=== PATIENT | female | born 1965 | race African-American/Black ===

== ENCOUNTER 2016-11-19 15:33 | Inpatient (IN) | payer OTHER ==
--- NOTE | ~2016-11-19 | HP ---
Unit #: [id number] #: [id number] Patient: SONALI PATEL [id number] [place] [address] [id number] MR#: [id number] NAME: SONALI PATEL. ROOM: [facility] Age: 51 Sex: F Admission Date: 11/19/2016 : 1965 Attending Physician: Riley Anderson M.D. Admitting Physician: Riley Anderson M.D. Primary Care Physician: Primary Care Physician No HISTORY AND PHYSICAL HISTORY OF PRESENT ILLNESS The patient is a 51-year-old female admitted [facility] on 11/19/2016 for withdrawal from alcohol and drugs. PAST MEDICAL HISTORY 1. Diabetes. 2. Hypertension. 3. Nicotine dependence. 4. Alcohol abuse. 5. Drug abuse. PAST SURGICAL HISTORY 1. Back surgery. 2. Knee surgery. 3. Hysterectomy. SOCIAL HISTORY She is disabled. She lives with her friends. She smokes 2 packs of cigarettes daily. Drinks a fifth of alcohol per day, and uses cocaine on a daily basis. FAMILY MEDICAL HISTORY Noncontributory. ALLERGIES No known drug allergies. CURRENT MEDICATIONS Gabapentin, metformin, and lisinopril. REVIEW OF SYSTEMS CONSTITUTIONAL: No fever or chills. HEENT: Denies any sore throat, ear pain or runny nose. CARDIOVASCULAR: Denies chest pain, irregular heart rhythm or palpitations. CHEST: Denies shortness of breath or cough. No hemoptysis. GASTROINTESTINAL: Denies nausea, vomiting, diarrhea or chronic constipation. ENDOCRINE: Denies history of increased thirst or urination. No recent significant weight loss or gain. GENITOURINARY: Denies dysuria, frequency, or hematuria. SKIN: Denies any rashes. HEMATOLOGIC: Denies history of increased bleeding or bruising. MUSCULOSKELETAL: Denies any hot, swollen joints. No generalized muscle Unit #: [id number] #: [id number] Patient: SONALI PATEL pain. NEUROLOGIC: Denies problems with vision or speech. No frequent, severe headaches. No numbness, tingling or weakness in any extremities. Denies loss of bladder or bowel control. PHYSICAL EXAMINATION GENERAL: She is awake, alert, and oriented in no acute distress. VITAL SIGNS: Temperature 98.6, heart rate 98, respirations 18, blood pressure 173/95. HEIGHT: 5 feet 9. WEIGHT: 203 pounds. SKIN: Warm and dry without rash or lesion. HEENT: Normocephalic. TMs not viewed. Oral and nasal passages clear. Conjunctivae clear. PERRLA. EOMs intact. NECK: Supple without lymphadenopathy or thyromegaly. HEART: Regular rate and rhythm without murmur. LUNGS: Clear. ABDOMEN: Soft, nontender. : Not done. EXTREMITIES: No evidence of cyanosis, clubbing or edema. Moves all without focal deficit. NEUROLOGICAL: Grossly within normal limits. Cranial Nerves: II: Visual hernandez are intact. III, IV AND : Extraocular movements are intact. Pupils are equal, round and reactive to light. V: Facial sensation is grossly normal. VII: Facial movements and expression are normal. VIII: Auditory acuity grossly intact. IX, X: Uvula is midline. Phonation is normal. XI: Patient shrugs shoulders and turns head normally. XII: Tongue protrudes in the midline. Sensory and Motor Function: Sensory and motor sensation is grossly normal. Motor: moves all extremities well. IMPRESSION 1. Psychiatric admission. 2. Alcohol abuse. 3. Drug abuse. 4. Diabetes. 5. Hypertension. 6. Nicotine dependence. RECOMMENDATIONS PSYCHIATRIC: Per psychiatrist. MEDICAL: No contraindication to participate in this facility activities. MEDICAL PROGNOSIS Good. MEDICAL CONDITION Stable. Dictated by... Will Ramires/jorge l Unit #: [id number] #: [id number] Patient: SONALI PATEL TD: 11/20/2016 14:54 JOB #: [id number] HISTORY AND PHYSICAL Page 1 of 1 X ATTILA PACHECO APRN HISTORY AND PHYSICAL
--- NOTE | ~2016-11-19 | PN ---
Unit #: [id number] #: [id number] Patient: SONALI PATEL [id number] [facility] [address] [place] [address] [id number] MR#: [id number] NAME: SONALI PATEL. ROOM: P171 Age: 51 Sex: F Admission Date: 11/19/2016 : 1965 Attending Physician: Riley Anderson M.D. Admitting Physician: Riley Anderson M.D. Primary Care Physician: Primary Care Physician Rochelle PARRA PROGRESS NOTES DATE 11/22/2016 DISCUSSION The patient remains seclusive to room. She is complaining of some nighttime hunger and I will ask the hydroblaster to see her related to her history of diabetes. I will also ask the patient's social organization professor to see her regarding final arrangements for transfer to [facility] which should take place in the next couple of days. Dictated by... Riley Anderson M.D. CB/qing TD: 11/22/2016 23:35 JOB #: [id number] [facility] PROGRESS NOTES Page 1 of 1 X Riley Anderson MD X PROGRESS NOTE
--- NOTE | ~2016-11-19 | PA ---
Unit #: [id number] #: [id number] Patient: SONALI PATEL [id number] [place] [address] [id number] MR#: [id number] NAME: SONALI PATEL. ROOM: P171 Age: 51 Sex: F Admission Date: 11/19/2016 : 1965 Date of Assessment: 11/20/2016 Attending Physician: Riley Anderson M.D. Admitting Physician: Riley Anderson M.D. Primary Care Physician: Primary Care Physician No PSYCHIATRIC ASSESSMENT IDENTIFYING INFORMATION The patient is a 51-year-old female admitted with a history of alcohol and cocaine use. CHIEF COMPLAINT Drugs and alcohol. INFORMANT(S) Patient, reliability is fair. HISTORY OF PRESENT ILLNESS The patient is a 51-year-old female who was admitted to the [address] [place] [address] with a history of alcohol and cocaine use. The patient reports that she is scheduled to go to [facility] upon completion of detox. She has never been in chemical dependence treatment per her report. She denies recent changes in mood but does complain of chronic pain related to history of periodontal disease as well as back and foot pain. The patient reports no current suicidal or homicidal ideation. She denies any psychotic symptoms. She lives with her brother. She reports abuse of alcohol and cocaine. She denies any history of intravenous drug use. PAST PSYCHIATRIC HISTORY As above. PAST MEDICAL HISTORY Significant for history of diabetes mellitus, neuropathic diabetic pain, hypertension, and diabetes mellitus. ALLERGIES None. FAMILY HISTORY The patient's brother from a drug and alcohol related causes. SOCIAL HISTORY The patient lives with her brother. She is not presently employed. She reports alcohol and cocaine use as noted previously. She does not quantify her use of alcohol. MENTAL STATUS EXAMINATION Examination at this time reveals the patient to be a well-developed well-nourished female appearing stated age. She is in no Unit #: [id number] #: [id number] Patient: SONALI PATEL apparent physical distress at the time of examination. She awake, alert, and oriented in all spheres. Her mood is dysphoric, her affect blunted. Speech is generally well coherent. No gross deficits in memory or cognition noted. Intelligence is judged to be in the average range based on fund of knowledge. The patient is cooperative throughout the interview. She is currently reporting positive suicidal or homicidal ideation, and denies any psychotic symptoms. Her judgment and insight appear to be reasonably intact. ASSETS AND LIABILITIES The patient's assets: Motivation for change. Liabilities: Lack of resources. DIAGNOSTIC IMPRESSION 1. Alcohol use disorder. 2. Cocaine use disorder. 3. Diabetes mellitus. 4. Hypertension. TREATMENT PLAN The patient remains hospitalized for safety and stabilization. The patient will complete her detoxification protocol and states that she has already made arrangements to go to "[facility]" in [place], [place]. I would expect discharge to take place within 3 to 4 days. We will in the meantime continue previously prescribed gabapentin, metformin, lisinopril, and (1) __ ibuprofen as per the patient's request given to complaints of back, foot, and periodontal pain. Dictated by... Riley Anderson M.D. BETH/jorge l TD: 11/20/2016 14:02 JOB #: [id number] PSYCHIATRIC ASSESSMENT Page 1 of 1 X Riley Anderson MD X PSYCHIATRIC ASSESSMENT
--- NOTE | ~2016-11-19 | PN ---
Unit #: [id number] #: [id number] Patient: SONALI PATEL [id number] [facility] [address] [place] [address] [id number] MR#: [id number] NAME: SONALI PATEL. ROOM: P171 Age: 51 Sex: F Admission Date: 11/19/2016 : 1965 Attending Physician: Riley Anderson M.D. Admitting Physician: Riley Anderson M.D. Primary Care Physician: Primary Care Physician Rochelle PARRA PROGRESS NOTES DATE 11/21/2016 DISCUSSION The patient continues to complain of severe mouth and foot pain during today's interview. I have encouraged her to increase her participation within the therapeutic milieu and avail herself of prescribed medications. She continues to plan to go to [facility] upon her discharge from this facility. Dictated by... Riley Anderson M.D. CB/aarti TD: 11/22/2016 05:44 JOB #: [id number] [facility] PROGRESS NOTES Page 1 of 1 X Riley Anderson MD X PROGRESS NOTE
[2016-11-20 12:17] LABS: BASOPHIL# 0.1 X10e3 (0-0.3); BASOPHIL% 0.9 % (0-2.5); EOSINOPHIL# 0.2 X10e3 (0-0.7); EOSINOPHIL% 1.8 % (0.0-7.0); HEMATOCRIT 42.7 % (35.0-45.0); HEMOGLOBIN 13.9 gm/dL (12.0-16.0); LYMPHOCYTE# 3.8 X10e3 (1.0-3.5); LYMPHOCYTE% 34.3 % (17.0-45.0); MEAN CELL VOLUME 98.2 FL (83-96); MEAN CORPUSCULAR HEMOGLOBIN 31.9 PG (28-34); MEAN CORPUSCULAR HGB CONC 32.5 g/dL (30-36); MEAN PLATELET VOLUME 8.4 FL (6.5-11.5); MONOCYTE# 1.1 X10e3 (0-1.0); MONOCYTE% 9.6 % (3.0-12.0); NEUTROPHIL% 53.4 % (40-75); PLATELET COUNT 278 X10e3 (140-420); RED BLOOD COUNT 4.35 X10e (3.90-5.30); RED CELL DISTRIBUTION WIDTH 13.3 % (11.0-15.5); WHITE BLOOD COUNT 11.2 X10e3 (4.0-10.5)
[2016-11-20 12:30] LABS: DIFF IND NO
[2016-11-20 12:42] LABS: ALBUMIN SERUM 3.8 g/dL (3.5-5.0); BILIRUBIN,TOTAL 0.3 mg/dL (0.2-2.0); BUN/CREATININE RATIO 22.5; CALCIUM SERUM 9.2 mg/dL (8.4-10.2); CREATININE SERUM 0.8 mg/dL (0.6-1.4); GLOM FILT RATE Estimated 100.4 mL/min (>60); POTASSIUM 4.4 mmol/L (3.5-5.1); PROTEIN TOTAL SERUM 6.7 g/dL (6.0-8.3)
[2016-11-22 10:14] LABS: URINE APPEARANCE CLEAR; URINE BILIRUBIN NEG (NEG); URINE BLOOD NEG (NEG); URINE COLOR DK YELLOW; URINE GLUCOSE NEG (NEG); URINE KETONE NEG (NEG); URINE LEUKOCYTE ESTERASE NEG (NEG); URINE NITRATE NEG (NEG); URINE PH 5.5 (5-8); URINE PROTEIN NEG (NEG); URINE SPECIFIC GRAVITY 1.026 (1.003-1.035); URINE UROBILINOGEN 0.2 MG/DL (NEG)
[2016-11-22 10:47] LABS: AMPHETAMINE NEG (NEG); BARBITURATES NEG (NEG); BENZODIAZEPINES POS (NEG); COCAINE POS (NEG); MARIJUANA NEG (NEG); OPIATES NEG (NEG); TRICYCLIC ANTIDEPRESSANTS NEG (NEG); U METHADONE NEG (NEG)
== END 2016-11-23 12:35 | DRG 897 ==
LOC: P1E 17:45
PROVIDERS: Specialist
PROC: HZ2ZZZZ Detoxification Services for Substance Abuse Treatment (ICD-10-PCS; principal; 2016-11-19)
DX: F10.10 Alcohol abuse, uncomplicated (principal); F14.10 Cocaine abuse, uncomplicated; E11.40 Type 2 diabetes mellitus with diabetic neuropathy, unspecified; I10 Essential (primary) hypertension
CPT/HCPCS: 80053; 80307; 81003; 82947; 84703; 85025; 86592